=== PATIENT | male | born 1955 | race Caucasian/White ===

== ENCOUNTER → 2023-10-28 06:35 | Outpatient (REF) | payer OTHER, SELFPAY | LOC: MRI 3T 06:35 | PROVIDERS: ATTENDING PHYSICIAN Orthopaedic Surgery; FAMILY PHYSICIAN Internal Medicine | DX: M54.2 Cervicalgia (principal); M54.9 Dorsalgia, unspecified | CPT/HCPCS: 72141; 72146 ==

== ENCOUNTER 2024-03-11 09:16 | Emergency (ER) | payer OTHER, SELFPAY ==
[2024-03-11 09:17] VITALS: BP 127/64
--- NOTE | 2024-03-11 09:42 | ED.GENMED ---
History of Present Illness
General
Chief Complaint: Musculo-Skeletal Complaint
Source: patient
Exam Limitations: none
Time Seen by Provider: 03/11/24 09:30
History of Present Illness
History of Present Illness:
See MDM
Past History
Past History
ED Past Medical History: Asthma, GERD, HTN, Hypercholesterolemia and NIDDM; Negative CAD
ED Past Surgical History: Orthopedic (right rotator cuff) and Other (Hernia repair)
Social History
Tobacco: Former smoker
Alcohol: Daily (Beer 2-3)
Personal:
Living: with family
Employment: Employed
Family History
Family History: CAD
Phy Exam
Physical Exam
Physical Exam:
See MDM
Course
Orders/Labs/Results
Orders:
Orders
03/11/24 09:39
0.9% Sodium Chloride 1000 ml [Nss] 1,000 ml IV BOLUS
03/11/24 09:43
CPK [Creatine Phosphokinase] Urgent
Complete Blood Count/With Diff Urgent
Comprehensive Metabolic Panel Urgent
Magnesium Urgent
03/11/24 10:25
0.9% Sodium Chloride 1000 ml [Nss] 1,000 ml IV BOLUS
Abnormal Lab Results
03/11/24
09:43
WBC 4.4 L 10^3/uL
(4.8-10.8)
RBC 4.44 L 10^6/uL
(4.70-6.10)
Hct 38.2 L %
(39.0-52.0)
MCH 31.1 H pg
(27.0-31.0)
Absolute Lymphs (auto) 0.7 L 10^3/uL
(1.2-3.4)
Lymphocytes % 15.8 L %
(20.5-51.1)
Monocytes % 9.8 H %
(1.7-9.3)
BUN 25 H mg/dl
(9-20)
Glucose 173 H mg/dl
(70-99)
Creatine Kinase 230 H U/L
(55-170)
03/11/24 09:43
03/11/24 09:43
Vital Signs
Initial and Last Documented VS:
Initial Vital Signs
Temp Pulse Resp BP Pulse Ox
98 F 63 18 127/64 98
03/11/24 09:17 03/11/24 09:17 03/11/24 09:17 03/11/24 09:17 03/11/24 09:17
Last Documented Vital Signs
Temp Pulse Resp BP Pulse Ox
98 F 63 18 127/64 98
03/11/24 09:17 03/11/24 09:17 03/11/24 09:17 03/11/24 09:17 03/11/24 09:17
MDM/Problems Addressed
Differential Diagnosis Includes:
HPI and MDM Narrative:
68-year-old male presenting for evaluation of muscle cramping and increased fatigue. 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 He states this is more physically demanding than he had intended. Because of
this, patient has been more fatigued and believes that it is all related to the job. He had time off yesterday so was outside in the heat gardening for several hours. Patient has since been dealing with significant calf and arm cramping. He is
concerned he could have heat exhaustion
On exam, he is well-appearing nontoxic. Discussed the likelihood of heat related issues but will obtain basic blood work to rule out electrolyte abnormalities
Physical exam
General: Well appearing and non-toxic
HEENT: protecting airway. Mildly dry mucous membranes
Neck: appears supple
CV: No evidence of cyanosis. Regular rate and rhythm
Resp: No accessory muscle use
Abd: Non-distended
Extremities: No deformities
Neuro: alert
Psych: Normal affect
Skin: Intact
Problems Addressed including Acute and Chronic Conditions affecting care:
1. Heat exhaustion
Acuity: acute
Prognosis: stable
Details: Will give IV fluids and obtain basic blood work to rule out electrolyte abnormalities as cause of muscle cramping
Updates
Electrolytes within normal limits. BUN mildly elevated. CPK mildly elevated. Discussed fluids and return precautions
Differential Diagnosis (but not limited to): Heat exhaustion, hypokalemia, hypomagnesemia, hypocalcemia
Testing considered: EKG
Drug therapy (if applicable): OTC meds, please see d/c instruction regarding Rx drugs
Amount and/or Complexity of Data Reviewed
Clinical info obtained from: Patient
External data reviewed: N/A
Labs I independently reviewed (but not limited to): Elevated CPK
Radiology: N/A
Pulse Ox: not hypoxic
EKG independently reviewed: N/A
Planning Feeder: N/A
Critical Care: N/A
Risk of Complication:
Social Determinants of health: Good social support
Discussed with other providers: N/A
Escalation of Care includes Admit/Obs: After being observed in the Emergency Department, pt stable for discharge.
Occasional wrong word or 'sound a like' substitutions may have occurred due to the inherent limitations of voice recognition software. Read the chart carefully and recognize, using context, where substitutions have occurred.
*Critical Care Note
Total Time (30-74mins, 75-104mins- exclusive of procedures): Not Applicable
ED Attending Note
-
Portions of this chart may have been created with voice recognition software.� Occasional wrong word or��sound alike� substitutions may have occurred due to the inherent limitations of voice recognition software.
Discharge Plan
Departure
Patient Disposition: Home (Routine Discharge)
Date of Disposition: 03/11/24
Time of Disposition: 10:27
Patient with high blood pressure during this ER visit?: No
Discharge Problem:
Heat exhaustion
Prescriptions:
No Action
omeprazole 20 MG capsule,delayed release(DR/EC)
20 mg PO DAILY
benazepril 20 MG tablet
20 mg PO DAILY
sertraline 100 MG tablet
100 mg PO DAILY
allopurinol 100 MG tablet
100 mg PO DAILY
hydrochlorothiazide 25 MG tablet
25 mg PO DAILY
rosuvastatin 20 MG tablet
20 mg PO DAILY
dapagliflozin propanediol [Farxiga] 10 MG tablet
10 mg PO DAILY
desloratadine [Clarinex] 5 MG tablet
5 mg PO DAILY
Vitamin D3:
50,000 units PO MURRAY
dulaglutide [Trulicity] 1.5 MG/0.5 ML pen injector
1.5 mg INJ TH
Referrals:
Rachael Gamble DO [Family Provider] -
Stand Alone Forms: Return to Work
Activity Restrictions/Additional Instructions:
Please return for any worsening symptoms.
You may return at any time if you have further concerns.
Please increase your water intake and follow up with your doctor at the first available appointment.
Thank you for choosing [facility].
Interventions
Interventions:
*Risk Screen - Suicide Last Done: 03/11/24 09:17
*General Assessment Last Done: 03/11/24 09:17
*Neglect/Abuse Screening Last Done: 03/11/24 09:17
*ED COVID-19 Vaccine History Last Done: 03/11/24 09:47
ED-Musculoskeletal Assessment Last Done: 03/11/24 09:47
Discharge Date and Time
Print Language: HEBREW
[2024-03-11] MEDS: NSS 1000 IV ×2 (09:46→11:32)
[2024-03-11 09:58] LABS: % Basophils 0.5 % (0-2); % Eosinophils 3.7 % (0-6); % Immature Granulocytes 0.2 % (0-0.5); % Lymphocytes 15.8 % (20.5-51.1); % Monocytes 9.8 % (1.7-9.3); Absolute Eosinophils 0.2 10^3/uL (0-0.7); Absolute Lymphocytes 0.7 10^3/uL (1.2-3.4); Absolute Monocytes 0.4 10^3/uL (0.1-0.6); Absolute Neutrophils 3.1 10^3/uL (1.4-6.5); Hematocrit 38.2 % (39.0-52.0); Hemoglobin 13.8 g/dL (13.0-18.0); Mean Corp Hgb Conc. 36.1 g/dL (33.0-37.0); Mean Corpuscular Hgb 31.1 pg (27.0-31.0); Mean Platelet Volume 10.3 fL (7.4-10.4); Nucleated Red Blood Cells % 0 % (-); Platelet Count 145 10^3/uL (130-400); Red Blood Cell Count 4.44 10^6/uL (4.70-6.10); Red Cell Dist. Width 13.6 % (11.5-14.5); White Blood Cell Count 4.4 10^3/uL (4.8-10.8)
[2024-03-11 10:11] LABS: ALT (SGPT) 23 U/L (0-50); AST (SGOT) 27 U/L (17-59); Albumin 4.3 g/dl (3.5-5.0); Alkaline Phosphatase 81 U/L (38-126); Blood Urea Nitrogen 25 mg/dl (9-20); Calcium 9.1 mg/dl (8.4-10.2); Carbon Dioxide 26 mmol/L (22-30); Chloride 101 mmol/L (98-107); Creatine Phosphokinase 230 U/L (55-170); Glucose 173 mg/dl (70-99); Magnesium 1.7 mg/dl (1.6-2.3); Potassium 4.1 mmol/L (3.5-5.1); Sodium 136 mmol/L (135-145); Total Bilirubin 0.6 mg/dl (0.2-1.3); Total Protein 6.3 g/dl (6.3-8.2); eGFR > 60.00
[2024-03-11 12:08] VITALS: BP 139/77
== END 2024-03-11 13:06 | disposition home or self-care (01) ==
LOC: EMR 09:16
PROVIDERS: EMERGENCY PHYSICIAN Student in an Organized Health Care Education/Training Program; FAMILY PHYSICIAN Internal Medicine
DX: T67.5XXA Heat exhaustion, unspecified, initial encounter (principal); X30.XXXA Exposure to excessive natural heat, initial encounter
CPT/HCPCS: 99284; 96360; 96361; 80053; 82550; 83735; 85025

== ENCOUNTER 2024-10-18 05:56 | Day surgery (SDC) | payer OTHER, SELFPAY ==
[2024-09-23 11:00] LABS: Blood Urea Nitrogen 26 mg/dl (9-20); Calcium 8.9 mg/dl (8.4-10.2); Carbon Dioxide 28 mmol/L (22-30); Chloride 100 mmol/L (98-107); Glucose 137 mg/dl (70-99); Sodium 139 mmol/L (135-145); eGFR > 60.00
[2024-09-23 13:36] VITALS: BMI 26.6
[2024-10-18] VITALS (10 sets, daily range): BP systolic 86–137; BP diastolic 68–80; BMI 26.6
[2024-10-18 06:28] LABS: Glucose - Point of Care 132 mg/dl (70-99)
[2024-10-18] MEDS: NORMOSOL-R/PLASMALYTE-A 1000 IV (06:31)
[2024-10-18] MEDS: CELEBREX 200 MG PO (06:31)
[2024-10-18] MEDS: TYLENOL 1000 MG PO (06:31)
[2024-10-18 08:41] LABS: Glucose - Point of Care 159 mg/dl (70-99)
--- NOTE | 2024-10-18 09:17 | SUR.PHASEI ---
BP reading at 0900 incorrect, arm bent and cuff has slid, reposition and rechek 137/72
== END 2024-10-18 10:23 | disposition home or self-care (01) ==
LOC: SDS 05:56
PROVIDERS: ATTENDING PHYSICIAN Student in an Organized Health Care Education/Training Program; FAMILY PHYSICIAN Internal Medicine
DX: M20.21 Hallux rigidus, right foot (principal); I10 Essential (primary) hypertension; E11.9 Type 2 diabetes mellitus without complications; F90.9 Attention-deficit hyperactivity disorder, unspecified type; F32.A Depression, unspecified; K21.9 Gastro-esophageal reflux disease without esophagitis; M10.9 Gout, unspecified; Z82.49 Family history of ischemic heart disease and other diseases of the circulatory system; Z83.3 Family history of diabetes mellitus; Z87.891 Personal history of nicotine dependence; Z79.85 Long-term (current) use of injectable non-insulin antidiabetic drugs; Z79.84 Long term (current) use of oral hypoglycemic drugs; Z79.1 Long term (current) use of non-steroidal anti-inflammatories (NSAID)
CPT/HCPCS: 28750; 36415; 80048; 82962; 93005; C1713; C1776